=== PATIENT | female | born 2000 | race Caucasian/White ===

== ENCOUNTER 2023-11-26 20:22 | Emergency (ER) | payer OTHER ==
[~2023-11-26] VITALS: Ht 162.6 cm; Wt 69.4 kg
[2023-11-26 20:40] VITALS: BP 103/64; PULSE 92; RESP 17; TEMP 98.3; O2SAT 99
[2023-11-26 21:21] LABS: APPEARANCE,URINE CLEAR (CLEAR); BILIRUBIN,URINE 1+ (NEGATIVE); BLOOD, URINE NEGATIVE (NEGATIVE); COLOR,URINE ORANGE (YELLOW); LEUKOCYTE ESTERASE ,URINE NEGATIVE (NEGATIVE); NITRITE, URINE NEGATIVE (NEGATIVE); PROTEIN,URINE NEGATIVE (NEGATIVE); UGLUCOSE NEGATIVE (NEGATIVE); UROBILINOGEN,URINE 0.2 EU/dL (0.2 - 1)
[2023-11-26 21:29] LABS: ICTOTEST NEGATIVE (NEGATIVE)
[2023-11-26 22:48] LABS: BASOPHILS # (AUTO) 0.1 K/uL (0.00-0.22); BASOPHILS % (AUTO) 0.9 % (0.0-2.0); EOSINOPHILS # (AUTO) 0.1 K/uL (0-0.4); EOSINOPHILS % (AUTO) 1.3 % (0.0-4.0); HEMATOCRIT 24.8 % (36-48); HEMOGLOBIN 9.1 g/dL (12.0-16.0); LYMPHOCYTES # (AUTO) 2.2 K/uL (2.5-16.5); LYMPHOCYTES % (AUTO) 20.6 % (20.5-51.1); MEAN CORPUSCULAR HEMOGLOBIN 30 pg (27-31); MEAN CORPUSCULAR HGB CONC 37 g/dL (33-37); MEAN CORPUSCULAR VOLUME 81.8 fL (80-94); MONOCYTES # (AUTO) 0.7 K/uL (0.8-1.0); MONOCYTES % (AUTO) 6.6 % (1.7-9.3); NEUTROPHILS # (AUTO) 7.5 K/uL (1.8-7.7); NEUTROPHILS % (AUTO) 70.6 % (42.2-75.2); PLATELET COUNT (AUTO) 269 K/uL (140-450); RED BLOOD CELL COUNT(AUTO) 3.03 MIL/uL (4.20-5.40); RED CELL DISTRIBUTION WIDTH 18.9 % (11.6-13.7); WHITE BLOOD COUNT (AUTO) 10.6 K/uL (4.8-10.8)
[2023-11-26 22:55] LABS: ANION GAP 11.6 (8-16); CALCIUM 8.8 mg/dL (8.5-10.1); CARBON DIOXIDE 29.3 mmol/L (21-32); CREATININE 0.6 mg/dL (0.6-1.3); POTASSIUM 3.9 mmol/L (3.5-5.1)
[2023-11-26] MEDS ORDERED: METR-435 PO (23:40)
== END 2023-11-26 23:46 | disposition home or self-care (01) ==
LOC: MED 20:22
DX: N76.0 Acute vaginitis (principal); B96.89 Other specified bacterial agents as the cause of diseases classified elsewhere
CPT/HCPCS: 36415; 80048; 81003; 81025; 85025; 87210; 99283

== ENCOUNTER 2024-01-17 09:53 | Emergency (ER) | payer OTHER ==
[~2024-01-17] VITALS: Ht 162.6 cm; Wt 71.7 kg
[~2024-01-17 09:53] MED LIST: METR-435 PO
[2024-01-17 10:27] VITALS: BP 104/57; PULSE 74; RESP 16; TEMP 98.1; O2SAT 100
[2024-01-17 11:39] LABS: APPEARANCE,URINE CLEAR (CLEAR); BILIRUBIN,URINE NEGATIVE (NEGATIVE); BLOOD, URINE NEGATIVE (NEGATIVE); COLOR,URINE YELLOW (YELLOW); LEUKOCYTE ESTERASE ,URINE 1+ (NEGATIVE); NITRITE, URINE NEGATIVE (NEGATIVE); PROTEIN,URINE NEGATIVE (NEGATIVE); UGLUCOSE NEGATIVE (NEGATIVE); UROBILINOGEN,URINE 0.2 EU/dL (0.2 - 1)
[2024-01-17 11:55] LABS: BACTERIA,URINE FEW /HPF (None Seen); MUCUS,URINE None Seen /LPF (None Seen); RBC,URINE 0-5 /HPF (0-5); SQUAMOUS EPITHELIAL CELL,UR 0-3 (FEW) /LPF (0-3 (FEW)); YEAST,URINE None Seen /HPF (None Seen)
[2024-01-17 11:56] LABS: TRICHOMONAS,URINE None Seen /HPF (None Seen); WHITE BLOOD CELL CASTS,URINE None Seen /LPF (None Seen)
[2024-01-17] MEDS ORDERED: CEPH-588 PO (12:30)
[2024-01-17] MEDS ORDERED: LIDO5CRE19 TP (12:30)
[2024-01-17 12:47] VITALS: BP 130/70; PULSE 80; RESP 18; TEMP 97.3; O2SAT 98
== END 2024-01-17 12:50 | disposition home or self-care (01) ==
LOC: MED 09:53
DX: N39.0 Urinary tract infection, site not specified (principal); N76.89 Other specified inflammation of vagina and vulva; Z79.899 Other long term (current) drug therapy
CPT/HCPCS: 81001; 81025; 87086; 87210; 87491; 99284

== ENCOUNTER 2024-03-04 13:49 | Emergency (ER) | payer OTHER ==
[~2024-03-04] VITALS: Ht 162.6 cm; Wt 71.7 kg
[~2024-03-04 13:49] MED LIST changes: +CEPH-588 PO; +LIDO5CRE19 TP
[2024-03-04 14:08] VITALS: BP 109/55; PULSE 89; RESP 19; TEMP 98.7; O2SAT 99
[2024-03-04] MEDS ORDERED: FLONAS NS (15:15)
[2024-03-04] MEDS ORDERED: BENZ100C6 PO (15:15)
[2024-03-04] MEDS ORDERED: CETI-264 PO (15:15)
[2024-03-04 17:02] LABS: FLU A ANTIGEN negative (NEGATIVE); FLU B ANTIGEN NEGATIVE (NEGATIVE)
== END 2024-03-04 15:29 | disposition home or self-care (01) ==
LOC: MED 13:49
DX: B34.9 Viral infection, unspecified (principal); Z20.822 Contact with and (suspected) exposure to COVID-19; Z98.890 Other specified postprocedural states; Z79.899 Other long term (current) drug therapy
CPT/HCPCS: 71045; 99284